=== PATIENT | female | born 1975 | race Caucasian/White ===

== ENCOUNTER 2020-09-23 15:39 | Emergency (ER) | payer OTHER ==
[~2020-09-23] VITALS: Ht 167.6 cm; Wt 70.8 kg
[~2020-09-23 15:39] MED LIST: FLUT16SP2 NS
--- NOTE | 2020-09-23 16:32 | NUR ---
CC OF SWELLING IN HER NECK BILAT, LEFT WORSE THEN RIGHT AND DIFFICULTY SWALLOWING. PT STATES SHE HAS HAD SYMPTOMS FOR 3 WEEKS AND HAS BEEN SEEING HER PCP BUT WAS UNABLE TO REACH THEM TODAY. PT STATES "IV'E BEEN WORKED UP FOR THE SMALL STUFF AND HAVE NO REDNESS OR WHITE PATCHY ANYTHING IN MY THROAT". PT STATES SHE IS SUPPOSED TO HAVE SWALLOW STUDY DONE IN OCTOBER. PT CONCERNED FOR MASS.
--- NOTE | 2020-09-23 17:08 | NUR ---
PT TO IMAGING
[2020-09-23 17:24] LABS: BASOPHILS % (AUTO) 1 % (0-1); EOSINOPHILS % (AUTO) 2 % (1-7); LYMPHOCYTES % (AUTO) 25 % (22-44); MEAN CORPUSCULAR HEMOGLOBIN 29.2 pg (27.0-34.8); MEAN CORPUSCULAR HGB CONC 34.6 g/dL (32.4-35.8); MEAN PLATELET VOLUME 8.4 fL (7.4-10.4); MONOCYTES % (AUTO) 7 % (2-9); NEUTROPHILS % (AUTO) 66 % (42-75); PLATELET COUNT 298 x10^3/uL (130-400); RED BLOOD COUNT 4.46 x10^6/uL (3.82-5.3); RED CELL DISTRIBUTION WIDTH 12.6 % (9.6-15.2)
[2020-09-23] MEDS ORDERED: SODIUM CHLORIDE FLUSH 10ML SYR IVF ONE (17:30)
[2020-09-23 17:36] LABS: ALBUMIN 3.9 g/dL (3.4-5.0); ANION GAP 6 mmol/L (5-15); CALCIUM 8.9 mg/dL (8.5-10.1); CHLORIDE 106 mmol/L (98-107); CREATININE 0.59 mg/dL (0.55-1.02)
[2020-09-23] MEDS ORDERED: OMNIPAQUE 350 MG/ML, 100ML BOTTLE ONE (18:00)
[2020-09-23] MEDS ORDERED: DEXAMETHASONE 4 MG TABLET ONE (18:48)
[2020-09-23] MEDS ORDERED: DEXAMETHASONE 4 MG TABLET PO ONE (19:00)
[2020-09-23 19:30] VITALS: BP 124/78
== END 2020-09-23 19:48 | disposition home or self-care (01) ==
LOC: ED 19:42
DX: J02.9 Acute pharyngitis, unspecified (principal); M54.2 Cervicalgia
CPT/HCPCS: 36415; 70491; 80048; 82040; 85025; 99285; Q9967